=== PATIENT | female | born 1985 | race Two or more races ===

== ENCOUNTER 2023-10-04 09:20 | Emergency (ER) | payer OTHER ==
[~2023-10-04] VITALS: Ht 157.5 cm; Wt 70.8 kg
[~2023-10-04 09:20] MED LIST: PRENA1 SOFTGEL1 EACH PO
[2023-10-04] MEDS ORDERED: KETOROLAC TROMETHAMINE 60 MG VIAL IM STA (09:54)
[2023-10-04] MEDS ORDERED: KETOROLAC TROMETHAMINE 60 MG VIAL IM ONE (09:57)
[2023-10-04 10:52] LABS: HEMATOCRIT 40.2 % (36.0-45.00); HEMOGLOBIN 13.6 g/dL (12.0-15.00); MEAN CELL VOLUME 89.7 fL (80.00-100.00); MEAN CORPUSCULAR HEMOGLOBIN 30.4 pg (27.00-32.0); MEAN CORPUSCULAR HGB CONC 33.9 g/dl (32.0-36.0); PLATELET COUNT 230 K/uL (150-450); RED BLOOD COUNT 4.48 M/uL (4.00-6.00); RED CELL DISTRIBUTION WIDTH 14.9 % (11.5-14.5)
[2023-10-04 11:20] LABS: PH,URINE 6.5 (5.0-8.0); URINE APPEARANCE Clear; URINE BILIRRUBIN Negative (NEGATIVE); URINE BLOOD Negative; URINE COLOR Yellow; URINE GLUCOSE Negative (NEGATIVE); URINE LEUKOCYTE Negative; URINE NITRATE Negative; URINE PROTEIN Negative (NEGATIVE); URINE UROBILINOGEN 0.2 E.U./dl
[2023-10-04 11:24] LABS: URINE BACTERIA 6400.5 uL (0.0-1933); URINE EPITHELIAL CELLS 22.8 uL (0.0-38.8); URINE RBC 13.7 uL (0.0-20.8); URINE WBC 18.6 uL (0.0-23.2)
[2023-10-04 11:29] LABS: CREATININE SERUM 0.74 mg/dL (0.55-1.02); GFR 88.8; POTASSIUM 3.71 mEq/L (3.5-5.1)
== END 2023-10-04 16:25 | disposition home or self-care (01) ==
LOC: ER 09:21
PROVIDERS: General Practice
DX: R10.2 Pelvic and perineal pain (principal); N83.291 Other ovarian cyst, right side

== ENCOUNTER 2024-01-22 16:05 | Emergency (ER) | payer OTHER ==
[~2024-01-22] VITALS: Ht 157.5 cm; Wt 70.3 kg
[2024-01-22] MEDS ORDERED: SUMATRIPTAN SUCCINATE 6 MG/0.5 ML VIAL SUBCUTANEO ONE (17:30)
== END 2024-01-22 19:46 ==
LOC: ER 16:07
DX: G43.909 Migraine, unspecified, not intractable, without status migrainosus (principal)

== ENCOUNTER 2024-08-04 14:47 | Emergency (ER) | payer OTHER ==
[~2024-08-04] VITALS: Ht 157.5 cm; Wt 72.6 kg
[2024-08-04 17:03] LABS: PH,URINE 7.5 (5.0-8.0); URINE APPEARANCE Clear; URINE BILIRRUBIN Negative (NEGATIVE); URINE BLOOD Negative; URINE COLOR Yellow; URINE GLUCOSE Negative (NEGATIVE); URINE KETONE Negative (NEGATIVE); URINE LEUKOCYTE Negative; URINE NITRATE Negative; URINE PROTEIN Negative (NEGATIVE); URINE UROBILINOGEN 0.2 E.U./dl
[2024-08-04 17:04] LABS: BASO % 0.3 % (0.1-1.2); EOS % 0.9 % (0.7-7.0); HEMATOCRIT 38.7 % (34.1-44.9); HEMOGLOBIN 12.8 g/dL (11.2-15.7); LYMPH # 3.15 (1.18-3.74); LYMPH % 28.4 % (19.3-53.1); MEAN CORPUSCULAR HEMOGLOBIN 29.4 pg (25.6-32.2); MONO # 0.83 (0.24-0.82); MONO % 7.5 % (4.7-12.5); NEUT # 6.94 (1.56-6.13); NEUT % 62.4 % (34.0-71.1); PLATELET COUNT 282 K/uL (163-369); RED BLOOD COUNT 4.36 M/uL (3.93-5.22); RED CELL DISTRIBUTION WIDTH 12.5 % (11.6-14.4)
[2024-08-04 17:07] LABS: URINE BACTERIA 28.1 uL (0.0-1933); URINE EPITHELIAL CELLS 20.6 uL (0.0-38.8); URINE WBC 2.6 uL (0.0-23.2)
[2024-08-04 17:14] LABS: URINE CAST 0.29 uL (0.0-1.40); URINE RBC 0.8 uL (0.0-20.8)
[2024-08-04 17:26] LABS: INFLUENZA A AG NEGATIVE (NEGATIVE)
[2024-08-04 17:27] LABS: COVID-19 AG NEGATIVE (NEGATIVE)
[2024-08-04 17:42] LABS: CALCIUM 8.7 mg/dL (8.5-10.1); CREATININE SERUM 0.69 mg/dL (0.55-1.02); GFR 95.73; POTASSIUM 4.73 mEq/L (3.5-5.1)
== END 2024-08-04 18:38 | disposition home or self-care (01) ==
LOC: ER 14:48
PROVIDERS: General Practice
DX: R05.8 Other specified cough (principal); R53.1 Weakness; Z20.822 Contact with and (suspected) exposure to COVID-19